=== PATIENT | male | born 1970 | race Caucasian/White ===

== ENCOUNTER 2018-05-10 12:59 | Inpatient (IN) | payer SELFPAY ==
[~2018-05-10] VITALS: Ht 162.6 cm; Wt 71.4 kg
[2018-05-10] MEDS ORDERED: LABETALOL 5MG/ML, 20ML ONE ×2 (13:10→13:38)
[2018-05-10] MEDS ORDERED: ONDANSETRON 2MG/ML, 2ML ONE (13:14)
[2018-05-10] MEDS ORDERED: MORPHINE SULFATE 4 MG/ML, 1ML ONE (13:14)
[2018-05-10] MEDS ORDERED: MIDAZOLAM 1 MG/ML, 5ML ONE ×2 (13:16→16:26)
[2018-05-10] MEDS ORDERED: TICAGRELOR 90 MG TABLET ONE (13:16)
[2018-05-10] MEDS ORDERED: HEPARIN 1,000 UNITS/ML, 10ML ONE ×2 (13:16→16:28)
[2018-05-10] MEDS ORDERED: BIVALIRUDIN 250 MG ONE ×2 (13:16→16:28)
[2018-05-10] MEDS: MORPHINE SULFATE 4 MG/ML, 1ML IVPush PRN ×2 (13:16→13:17)
[2018-05-10] MEDS ORDERED: VERAPAMIL 2.5 MG/ML, 2ML ONE ×2 (13:16→16:28)
[2018-05-10] MEDS ORDERED: FENTANYL PF 100 MCG/2ML ONE ×2 (13:16→16:26)
[2018-05-10] MEDS ORDERED: HYDR25TA6 PO (13:22)
[2018-05-10] MEDS ORDERED: ONDANSETRON 2MG/ML, 2ML IVPush ONE (13:30)
[2018-05-10] MEDS ORDERED: ONDANSETRON 2MG/ML, 2ML IVPush PRN (13:30)
[2018-05-10] MEDS ORDERED: ASPIRIN 81 MG TABLET CHEW PO ONE (13:30)
[2018-05-10] MEDS ORDERED: morphine SULFATE 10 MG/ML, 1ML IVPush PRN (13:30)
[2018-05-10] MEDS ORDERED: BISACODYL 5 MG EC TABLET PO PRN (13:30)
[2018-05-10] MEDS ORDERED: NITROGLYCERIN 0.4 MG/SPRAY SL PRN (13:30)
[2018-05-10] MEDS ORDERED: LABETALOL 5MG/ML, 20ML IVPush ONE (13:30)
[2018-05-10 13:31] LABS: BASOPHILS # (AUTO) 0.08 x10^3/uL (0-0.1); BASOPHILS % (AUTO) 1 % (0-1); EOSINOPHILS # (AUTO) 0.01 x10^3/uL (0-0.4); EOSINOPHILS % (AUTO) 0 % (1-7); LYMPHOCYTES # (AUTO) 2.56 x10^3/uL (1-3.4); LYMPHOCYTES % (AUTO) 25 % (22-44); MD NO; MEAN CORPUSCULAR HEMOGLOBIN 31.4 pg (27.5-34.5); MEAN CORPUSCULAR HGB CONC 34.4 g/dL (33.2-36.2); MEAN CORPUSCULAR VOLUME 91.2 fL (81-97); MEAN PLATELET VOLUME 8.4 fL (7.4-10.4); MONOCYTES # (AUTO) 0.73 x10^3/uL (0.2-0.8); MONOCYTES % (AUTO) 7 % (2-9); NEUTROPHILS # (AUTO) 7.01 x10^3/uL (1.8-6.8); NEUTROPHILS % (AUTO) 67 % (42-75); PLATELET COUNT 310 x10^3/uL (130-400); RED BLOOD COUNT 5.79 x10^6/uL (4.38-5.82); RED CELL DISTRIBUTION WIDTH 12.7 % (9.4-14.8)
[2018-05-10 13:41] LABS: INTERNATIONAL NORMALIZED RATIO 0.93 (0.93-1.1); PROTHROMBIN TIME 9.6 Seconds (9.6-11.5)
[2018-05-10 13:44] LABS: ALANINE AMINOTRANSFERASE 43 U/L (12-78); ALBUMIN 4.2 g/dL (3.4-5.0); ANION GAP 11 mmol/L (5-15); CALCIUM 8.5 mg/dL (8.5-10.1); CHLORIDE 95 mmol/L (98-107); CREATININE 0.95 mg/dL (0.7-1.3)
[2018-05-10 13:48] LABS: ALKALINE PHOSPHATASE 80 U/L (45-117); BILIRUBIN,TOTAL 0.4 mg/dL (0.2-1.0); TOTAL PROTEIN 8.3 g/dL (6.4-8.2); TROPONIN I 0.021 ng/mL (0.000-0.045)
[2018-05-10] MEDS ORDERED: hydrALAzine 20 MG/ML, 1ML ONE (13:58)
[2018-05-10] MEDS ORDERED: LABETALOL 5MG/ML, 20ML IVPush PRN (14:30)
[2018-05-10] MEDS ORDERED: POTASSIUM CHLORIDE 20 MEQ TAB.ER.PRT ONE (14:46)
[2018-05-10] MEDS: ACETAMINOPHEN 325 MG TABLET PO PRN (14:48)
[2018-05-10] MEDS: POTASSIUM CHLORIDE 20 MEQ TAB.ER.PRT PO SCH (14:48)
[2018-05-10] MEDS: hydrALAzine 20 MG/ML, 1ML IV PRN ×2 (14:55→18:04)
[2018-05-10] MEDS ORDERED: ATROPINE SYRINGE 0.1 MG/ML, 10ML ONE (16:04)
[2018-05-10] MEDS ORDERED: LIDOCAINE-MPF 1%, 5ML ONE (16:26)
[2018-05-10] MEDS ORDERED: DIPHENHYDRAMINE 50 MG/ML, 1ML ONE (16:36)
[2018-05-10] MEDS ORDERED: TIROFIBAN HCL MONOHYDRATE 15 ML ONE (16:57)
[2018-05-10] MEDS ORDERED: ADENOSINE 6 MG/2 ML ONE (16:57)
[2018-05-10] MEDS ORDERED: METOPROLOL 1 MG/ML, 5ML ONE (17:46)
[2018-05-10] MEDS ORDERED: TIROFIBAN-0.9% SODIUM CHLORIDE 100 ML IV ONE (18:00)
[2018-05-10] MEDS ORDERED: METOPROLOL 1 MG/ML, 5ML IVPush ONE (18:30)
[2018-05-10] MEDS: SODIUM CHLORIDE 0.9% 1,000 ML IV SCH (18:33)
[2018-05-10] MEDS: METOPROLOL TARTRATE 25 MG TABLET PO SCH (18:35)
[2018-05-10] MEDS: TICAGRELOR 90 MG TABLET PO SCH (20:09)
[2018-05-10] MEDS: ATORVASTATIN 80 MG TABLET PO SCH (20:09)
[2018-05-10] MEDS: LISINOPRIL 10 MG TABLET PO SCH (20:09)
[2018-05-11] MEDS: SODIUM CHLORIDE 0.9% 1,000 ML IV SCH ×2 (00:26→07:45)
[2018-05-11 03:58] LABS: MEAN CORPUSCULAR HEMOGLOBIN 31.7 pg (27.5-34.5); MEAN CORPUSCULAR HGB CONC 34.8 g/dL (33.2-36.2); MEAN CORPUSCULAR VOLUME 91.2 fL (81-97); MEAN PLATELET VOLUME 8.1 fL (7.4-10.4); PLATELET COUNT 289 x10^3/uL (130-400); RED CELL DISTRIBUTION WIDTH 12.7 % (9.4-14.8)
[2018-05-11 04:00] LABS: ALANINE AMINOTRANSFERASE 67 U/L (12-78); ALBUMIN 3.2 g/dL (3.4-5.0); ANION GAP 13 mmol/L (5-15); CALCIUM 7.5 mg/dL (8.5-10.1); CHLORIDE 100 mmol/L (98-107)
[2018-05-11 04:03] LABS: ALKALINE PHOSPHATASE 54 U/L (45-117); BILIRUBIN,TOTAL 0.6 mg/dL (0.2-1.0); CHOL/HDL RATIO 4.5; CHOLESTEROL, TOTAL 154 mg/dL (140-239); CREATININE 0.96 mg/dL (0.7-1.3); HDL CHOL % 22 % (26-37); HDL CHOLESTEROL (DIRECT) 34 mg/dL (40-60); LDL CHOLESTEROL,CALCULATED 81 mg/dL (54-169); LDL/HDL RATIO 2.4 (0.5-3.0); TOTAL PROTEIN 6.4 g/dL (6.4-8.2); TRIGLYCERIDES 193 mg/dL (50-200); VLDL CHOLESTEROL 39 mg/dL (0-25)
[2018-05-11 05:39] VITALS: BP 99/54
[2018-05-11] MEDS: METOPROLOL TARTRATE 25 MG TABLET PO SCH ×2 (06:23→18:22)
[2018-05-11] MEDS: POTASSIUM CHLORIDE 20 MEQ TAB.ER.PRT PO SCH (07:44)
[2018-05-11] MEDS: TICAGRELOR 90 MG TABLET PO SCH ×2 (07:45→19:46)
[2018-05-11] MEDS: HYDROCHLOROTHIAZIDE 25 MG TABLET PO SCH (07:45)
[2018-05-11] MEDS: ISOSORBIDE MONONITRATE ER 30 MG TABLET PO SCH (07:45)
[2018-05-11] MEDS: ASPIRIN 81 MG TABLET EC PO SCH (07:45)
[2018-05-11] MEDS: LISINOPRIL 10 MG TABLET PO SCH ×2 (07:45→19:46)
[2018-05-11 14:30] VITALS: BP 124/70
[2018-05-11 18:21] VITALS: BP 141/78
[2018-05-11] MEDS: ATORVASTATIN 80 MG TABLET PO SCH (19:46)
[2018-05-11 21:46] VITALS: BP 119/75
[2018-05-12 00:38] VITALS: BP 121/78
[2018-05-12] MEDS: METOPROLOL TARTRATE 25 MG TABLET PO SCH ×2 (05:24→18:24)
[2018-05-12 08:19] VITALS: BP 125/84
[2018-05-12] MEDS: TICAGRELOR 90 MG TABLET PO SCH ×2 (09:22→21:15)
[2018-05-12] MEDS: ASPIRIN 81 MG TABLET EC PO SCH (09:22)
[2018-05-12] MEDS: LISINOPRIL 10 MG TABLET PO SCH ×2 (09:22→21:16)
[2018-05-12] MEDS: ISOSORBIDE MONONITRATE ER 30 MG TABLET PO SCH (09:23)
[2018-05-12] MEDS: HYDROCHLOROTHIAZIDE 25 MG TABLET PO SCH (09:23)
[2018-05-12 14:46] VITALS: BP 124/75
[2018-05-12] MEDS: ACETAMINOPHEN 325 MG TABLET PO PRN ×2 (14:57→21:16)
[2018-05-12 21:11] VITALS: BP 137/86
[2018-05-12] MEDS: ATORVASTATIN 80 MG TABLET PO SCH (21:15)
[2018-05-13 01:03] VITALS: BP 120/70
[2018-05-13 05:26] LABS: CHLORIDE 102 mmol/L (98-107)
[2018-05-13 05:31] LABS: ANION GAP 8 mmol/L (5-15); CALCIUM 8.5 mg/dL (8.5-10.1); CREATININE 0.77 mg/dL (0.7-1.3)
[2018-05-13] MEDS: METOPROLOL TARTRATE 25 MG TABLET PO SCH (06:36)
[2018-05-13 07:21] VITALS: BP 126/87
[2018-05-13] MEDS: ISOSORBIDE MONONITRATE ER 30 MG TABLET PO SCH (09:18)
[2018-05-13] MEDS: TICAGRELOR 90 MG TABLET PO SCH (09:18)
[2018-05-13] MEDS: ASPIRIN 81 MG TABLET EC PO SCH (09:18)
[2018-05-13] MEDS: LISINOPRIL 10 MG TABLET PO SCH (09:19)
[2018-05-13] MEDS: HYDROCHLOROTHIAZIDE 25 MG TABLET PO SCH (09:19)
[2018-05-13] MEDS ORDERED: ACET325T14 PO (09:24)
[2018-05-13] MEDS ORDERED: LISI-167 PO (09:24)
[2018-05-13] MEDS ORDERED: TICA90TA PO (09:24)
[2018-05-13] MEDS ORDERED: ATOR-2 PO (09:24)
[2018-05-13] MEDS ORDERED: CARV6.252 PO (09:24)
[2018-05-13] MEDS ORDERED: ASPI-621 PO (09:24)
[2018-05-13] MEDS ORDERED: ISOS30TA8 PO (09:24)
[2018-05-13] MEDS ORDERED: POTASSIUM CHLORIDE 20 MEQ TAB.ER.PRT PO ONE (09:30)
== END 2018-05-13 11:10 | disposition home or self-care (01) | DRG 247 ==
LOC: EDBD 12:59 → ED 13:21 → EDIP 13:27 → CCU 14:28 → 5SO 05-11 14:36
PROVIDERS: ADMIT Internal Medicine Cardiovascular Disease; ATTEND Internal Medicine Cardiovascular Disease
PROC: 027034Z Dilation of Coronary Artery, One Artery with Drug-eluting Intraluminal Device, Percutaneous Approach (ICD-10-PCS; principal; 2018-05-10)
PROC: 027034Z Dilation of Coronary Artery, One Artery with Drug-eluting Intraluminal Device, Percutaneous Approach (ICD-10-PCS; 2018-05-10)
PROC: 02C03ZZ Extirpation of Matter from Coronary Artery, One Artery, Percutaneous Approach (ICD-10-PCS; 2018-05-10)
PROC: B2101ZZ Fluoroscopy of Single Coronary Artery using Low Osmolar Contrast (ICD-10-PCS; 2018-05-10)
PROC: 4A023N7 Measurement of Cardiac Sampling and Pressure, Left Heart, Percutaneous Approach (ICD-10-PCS; 2018-05-10)
PROC: B2151ZZ Fluoroscopy of Left Heart using Low Osmolar Contrast (ICD-10-PCS; 2018-05-10)
PROC: B2111ZZ Fluoroscopy of Multiple Coronary Arteries using Low Osmolar Contrast (ICD-10-PCS; 2018-05-10)
DX: I21.19 ST elevation (STEMI) myocardial infarction involving other coronary artery of inferior wall (principal); I16.1 Hypertensive emergency; I44.2 Atrioventricular block, complete; E78.5 Hyperlipidemia, unspecified; E87.6 Hypokalemia; I10 Essential (primary) hypertension; I25.10 Atherosclerotic heart disease of native coronary artery without angina pectoris; Y92.89 Other specified places as the place of occurrence of the external cause; Z82.49 Family history of ischemic heart disease and other diseases of the circulatory system
CPT/HCPCS: 36415; 71045; 80047; 80048; 80053; 80061; 83880; 84484; 85025; 85027; 85610; 85730; 87081; 90656; 92978; 93005; 93306; 93454; 93458; 99156; 99157; 99285; C1753; C1769; C1894; G0378; J0153; J0583; J1644; J2250; J2405; J3010; C1725; C1757; C1874; C1887; J0360; J1200; J2270; J7030; Q9967